=== PATIENT | male | born 1940 | race African-American/Black ===

== ENCOUNTER 2016-12-03 10:13 | Emergency (ER) | payer MEDICARE ==
[~2016-12-03] VITALS: Ht 185.4 cm; Wt 95.0 kg
[~2016-12-03 10:13] MED LIST: AMOXICILLIN500 MG PO; AUGMENTIN500TAB PO; AUGMENTIN875TAB PO; BENADRYL 50MG C50 MG PO; CENTRUM SILVER PO; CETIRIZ/PSE1 TAB PO; CIPROFLOXACIN250 MG PO; CIPROFLOXACN500 MG PO; FISH OIL1 CAP PO; FISH OIL1000 MG; FLEXERIL PO; FLOMAX0.4 M1 PO; FLONASE NASAL50 MCG; FLUARIX QUADRIV1 IN1 IM; GARLIC PO; GARLIC100 MG PO; GNP ALLERGY-D12 HOUR PO; LIORESAL10 MG/TA1 PO; METAMUCIL MULT58.6 % PO; MUCINEX1200 MG OR; MULTI VIT PO; NAPROSYN500 MG OR; NO HOME MEDS; NORCO1 TA2 PO; PEPCID20 MG PO; PERCOCET 5/325M1 TAB PO; PREDNISONE20 MG PO; PROAIR HFA IN; ROBITUSSIN AC10 ML PO; ULTRAM50 M1 PO; ULTRAM50 MG PO; ZITHROMAX250 MG PO; ZPAK PO; [UNRECOGNIZED DRUG - OTHER] PO
[2016-12-03 10:57] LABS: INFLUENZA A NONE DETECTED (NONE DETECT); INFLUENZA B NONE DETECTED (NONE DETECT)
[2016-12-03] MEDS ORDERED: KEFLEX500 M1 PO (11:48)
[2016-12-03] MEDS ORDERED: ROBITUSSIN AC10 ML PO (11:48)
[2016-12-03 11:53] VITALS: BP 139/74
== END 2016-12-03 11:53 | disposition home or self-care (01) ==
LOC: ED 10:13
PROVIDERS: Emergency Medicine
DX: J20.9 Acute bronchitis, unspecified (principal)

== ENCOUNTER 2017-07-22 15:02 | Observation (INO) | payer MEDICARE ==
[~2017-07-22] VITALS: Ht 185.4 cm; Wt 95.3 kg
[~2017-07-22 15:02] MED LIST changes: +KEFLEX500 M1 PO
[2017-07-22 15:21] LABS: HEMATOCRIT 41.2 % (39.0-50.0); HEMOGLOBIN 13.3 g/dl (14.0-18.0); IMMATURE GRANULOCYTES 0.2 % (0.0-1.0); MEAN CELL VOLUME 85.7 fL CALC (80.0-100.0); MEAN CORPUSCULAR HGB 27.7 pG CALC (26.0-32.0); MEAN CORPUSCULAR HGB CONC 32.3 g/L CALC (32.0-36.0); NEUT# 1.96 thou/uL (1.82-7.42); RED BLOOD COUNT 4.81 mill/uL (4.70-6.10); RED CELL DISTRI WIDTH 15.3 % (11.5-15.5)
--- NOTE | 2017-07-22 15:26 | NUR ---
PT REFUSED WC, AMBULATED TO ER ROOM 9 WITH STEADY GAIT, CHANGED INTO GOWN, ON MONITOR.
[2017-07-22 15:36] LABS: LIPASE 116 u/l (23-300)
[2017-07-22 15:37] LABS: ALBUMIN 4.3 g/dL (3.2-5.0); ALKALINE PHOSPHATASE 54 u/l (38-126); ANION GAP 15 (6-22 (CALC)); BILIRUBIN, TOTAL 0.6 mg/dL (0.0-1.4); BUN 10 mg/dL (8-23); BUN/CREATININE RATIO 9 (12-20 (CALC)); CALCIUM 9.4 mg/dL (8.4-10.2); CARBON DIOXIDE 26 mmol/l (22-30); CHLORIDE 109 mmol/l (95-108); GFR > 60 ML/MIN (>=60 (CALC)); GFR FOR AFR.AMER. > 60 ML/MIN (>=60 (CALC)); GLUCOSE 93 mg/dL (82-115); POTASSIUM 4.1 mmol/l (3.5-5.1); SGOT/AST 26 u/l (19-48); SGPT/ALT 23 u/l (11-66); SODIUM 146 mmol/l (137-146); TOTAL PROTEIN 7.4 g/dL (6.3-8.2)
[2017-07-22 15:48] LABS: MYOGLOBIN 31 ng/mL (0 - 121)
--- NOTE | 2017-07-22 16:00 | NUR ---
PATIENT REPORTING CONTINUED 8/10 RIGHT SIDED CP. PATIENT SHOWING SINUS RHYTHM ON THE MONITOR WITH NOTED PVC'S. MD NOTIFIED OF PT STATUS, AWAITING ORDERS.
--- NOTE | 2017-07-22 16:22 | NUR ---
PATIENT MEDICATED WITH 324 MG OF ASPIRIN AND 0.4 MG OF NITRO, SL FOR 8/10 ACHING CHEST PAIN. PATIENT ALSO MEDICATED WITH MAGIC MOUTH WASH. SINUS BRADYCARDIA NOTED ON THE MONITOR. WILL CONTINUE TO MONITOR. CALL VIERA WITHIN REACH.
--- NOTE | 2017-07-22 17:00 | NUR ---
PATIENT REPORTS CONTINUED 8/10 CHEST PAIN TO THE RIGHT ANTERIOR CHEST. MD NOTIFIED, AWAITING NEW ORDERS.
[2017-07-22 17:16] LABS: URINE BILIRUBIN - DIPSTICK NEGATIVE (NEGATIVE); URINE BLOOD DIPSTICK NEGATIVE (NEGATIVE); URINE CLARITY CLEAR; URINE COLOR YELLOW; URINE GLUCOSE - DIPSTICK NEGATIVE (NEGATIVE); URINE KETONE NEGATIVE (NEGATIVE); URINE LEUK ESTERASE NEGATIVE (NEGATIVE); URINE NITRITE - DIPSTICK NEGATIVE (Negative); URINE PROTEIN - DIPSTICK NEGATIVE (NEG-TRACE); URINE SPECIFIC GRAVITY 1.025; URINE UROBILINOGEN - DIPSTICK 0.2 E.U./dL (0.2)
[2017-07-22 17:19] LABS: BARBITURATES NEGATIVE (NEGATIVE); COCAINE NEGATIVE (NEGATIVE); METHADONE NEGATIVE (NEGATIVE); OXCYCODONE NEGATIVE (NEGATIVE); TETRAHYDROCANNABIONOL NEGATIVE (NEGATIVE); TRICYLIC ANTIDEPRESSANTS NEGATIVE (NEGATIVE)
--- NOTE | 2017-07-22 17:45 | NUR ---
REPORT GIVEN TO LIGIA MORTENSEN.
--- NOTE | 2017-07-22 18:13 | NUR ---
REPEAT EKG COMPLETED.
--- NOTE | 2017-07-22 18:20 | NUR ---
INFORMED PT OF ADMIT. INQUIRED ABOUT PT'S RIGHT EYE AND STATED PT SEES AN DOCTOR FOR GLUCOMA AND STATED PT HAD BUSTED BLOOD VESSEL IN THAT EYE BUT ALL PRESSURES ARE NORMAL. PT STILL COMPLAINING OF PAIN 03/23. DR SANCHEZ
--- NOTE | 2017-07-22 19:00 | NUR ---
REPORT GIVEN TO LIGIA BAE. WILL CALL WHEN PT MAY COME UP SHE IS GETTING REPORT ON FLOOR.
--- NOTE | 2017-07-22 19:30 | NUR ---
PT TRANSFERRED TO FLOOR VIA WC IN STABLE CONDITION ACCOMPANIED BY MIQUELRN;PT AMBULATED WITH A STEADY GAIT TO STANDING SCALE AND BEDSIDE;PT ORIENTED TO ROOM AND CALL LIGHT SYSTEM AND VERBALIZES UNDERSTANDING;VS OBTAINED;PT A&OX3,RESPIRATIONS EVEN AND UNLABORED ON RA;PT REPORTS CHEST PAIN X4 DAYS;NITRO PATCH NOTED TO RIGHT UPPER CHEST;PT VOICES NO COMPLAINTS OF PAIN AT THIS TIME AND IS EDUCATED ON PAIN SCALE AND REPORTING;TELE MONITOR NOTED;SKIN INTACT;RIGHT EYE APPEARS REDDENED PT STATES "I HAVE GLAUCOMA AND IM TAKING EYE DROPS FOR IT";SAFETY PRECAUTIONS REINFORCED WITH FALL PRECAUTIONS IN PLACE;URINAL AT BEDSIDE;PT EDUCATED TO CALL FOR ASSISTANCE IF NEEDED;CALL LIGHT IN REACH;WILL CONTINUE TO MONITOR
--- NOTE | 2017-07-22 19:34 | NUR ---
Admission Note Report Given to: VENU BAE Transported by: X Wheelchair Stretcher Transported with: X Nurse Transporter X Patent IV O2 X Food [employer] Drug Research Scientist
[2017-07-22 19:38] VITALS: BP 183/82
--- NOTE | 2017-07-22 19:43 | NUR ---
NOTIFIED THAT PT HAS ARRIVED TO FLOOR;NO NEW ORDERS RECEIVED
--- NOTE | 2017-07-22 19:50 | NUR ---
FRESH WATER AND SANDWICH PROVIDED TO PT
[2017-07-22 20:09] VITALS: BP 160/74
--- NOTE | 2017-07-22 21:30 | NUR ---
PT RESTING IN BED WATCHING TV;PT VOICES NO COMPLAINTS OF PAIN OR DISCOMFORTS;D5 1/2 NS STARTED TO RAC,PT TOLERATING WELL;URINAL EMPTIED OF 100CC OF DARK YELLOW/CLEAR URINE;PT EDUCATED TO CALL FOR ASSISTANCE;FALL PRECAUTIONS IN PLACE WITH CALL LIGHT IN REACH;WILL CONTINUE TO MONITOR
[2017-07-23] VITALS (7 sets, daily range): BP systolic 126–162; BP diastolic 41–77
--- NOTE | 2017-07-23 | NUR ---
PT APPEARS TO BE SLEEPING IN BED WITH EYES CLOSED;WOKE PT TO OBTAIN VS;IV FLUIDS INFUSING WELL TO RAC;PT VOICES NO COMPLAINTS OF PAIN OR DISCOMFORTS;RESPIRATIONS EVEN AND UNLABORED ON RA;TELE MONITOR IN PLACE;FALL PRECAUTIONS IN PLACE WITH CALL LIGHT IN REACH;WILL CONTINUE TO MONITOR
--- NOTE | 2017-07-23 04:40 | NUR ---
PT APPEARS TO BE SLEEPING IN SEMI FOWLERS POSITION WITH EYES CLOSED;WOKE PT TO OBTAIN VS;PT VOICES NO COMPLAINTS OF CHEST PAIN AT THIS TIME;PT DOES STATE THAT HE HAS A HEADACHE;EDUCATED PT ON SIDE EFFECTS OF NITRO OINTMENT AND OFFER TO REMOVE PATCH,PT REFUSES;IV FLUIDS INFUSING WELL TO RAC,SITE APPEARS HEALTHY;RESPIRATIONS EVEN AND UNLABORED ON RA;TELE MONITOR IN PLACE;PT DENIES ANY OTHER NEEDS AT THIS TIME;CALL LIGHT IN REACH;WILL CONTINUE TO MONITOR
[2017-07-23 05:29] LABS: HEMATOCRIT 37.6 % (39.0-50.0); HEMOGLOBIN 12.2 g/dl (14.0-18.0); IMMATURE GRANULOCYTES 0.2 % (0.0-1.0); MEAN CELL VOLUME 85.5 fL CALC (80.0-100.0); MEAN CORPUSCULAR HGB 27.7 pG CALC (26.0-32.0); MEAN CORPUSCULAR HGB CONC 32.4 g/L CALC (32.0-36.0); NEUT# 2.2 thou/uL (1.82-7.42); RED BLOOD COUNT 4.4 mill/uL (4.70-6.10)
[2017-07-23 05:38] LABS: ALBUMIN 3.4 g/dL (3.2-5.0); ALKALINE PHOSPHATASE 43 u/l (38-126); ANION GAP 14 (6-22 (CALC)); BILIRUBIN, TOTAL 0.7 mg/dL (0.0-1.4); BUN 12 mg/dL (8-23); BUN/CREATININE RATIO 12 (12-20 (CALC)); CALCIUM 8.7 mg/dL (8.4-10.2); CALCULATED LDLCHOLESTEROL 113 mg/dL (62-129 (CALC)); CARBON DIOXIDE 23 mmol/l (22-30); CHLORIDE 110 mmol/l (95-108); CHOLESTEROL HDL RATIO 4.9 (<4.4 (CALC)); GFR > 60 ML/MIN (>=60 (CALC)); GFR FOR AFR.AMER. > 60 ML/MIN (>=60 (CALC)); GLUCOSE 117 mg/dL (82-115); HDL CHOLESTEROL 34 mg/dL (>=40); POTASSIUM 4.3 mmol/l (3.5-5.1); SGOT/AST 23 u/l (19-48); SGPT/ALT 24 u/l (11-66); SODIUM 143 mmol/l (137-146); TOTAL CHOLESTEROL 167 mg/dl (0-199); TOTAL PROTEIN 6.2 g/dL (6.3-8.2); TOTAL TRIGLYCERIDES 99 mg/dl (30-149); VLDL CHOLESTROL 20 mg/dl (0-38 (CALC))
--- NOTE | 2017-07-23 07:24 | NUR ---
ASSESSMENT COMPLETED: IV SITE IS FREE FROM REDNESS OR EDEMA. NO DISTRESS NOTED. TELE MONITOR IN PLACE.
--- NOTE | 2017-07-23 12:45 | NUR ---
PT IS RELAXING IN BED FAMILY IN THE ROOM. IV SITE IS FREE FROM REDNESS OR EDEMA. NO DISTRESS NOTED. CONTINUE TO OBSERVE AND MONITOR.
--- NOTE | 2017-07-23 16:00 | NUR ---
PT IS VISITING WITH FAMILY. NO DISTRESS NOTED. IV SITE IS FREE FROM REDNESS OR EDEMA.
--- NOTE | 2017-07-23 19:45 | NUR ---
PT RESTING IN BED WATCHING TV;RESPIRATIONS EVEN AND UNLABORED ON RA;PT VOICES NO COMPLAINTS OF PAIN OR DISCOMFORTS;NITRO PATCH REMOVED FROM LEFT UPPER CHEST PER PT REQUEST;ASSESSMENT COMPLETED;LUNGS CLEAR;PERRLA;PT A&O X3;#20G TO RAC FLUSHED AND PATENT;TELE MONITOR IN PLACE;URINAL EMPTIED OF 800CC OF CLEAR/YELLOW URINE;SKIN INTACT;SAFETY PRECAUTIONS REINFORCED AND PT EDUCATED TO CALL FOR ASSISTANCE IF NEEDED;FALL PRECAUTIONS;CALL LIGHT IN REACH;WILL CONTINUE TO MONITOR
--- NOTE | 2017-07-23 22:45 | NUR ---
PT APPEARS TO BE SLEEPING WITH EYES CLOSED IN SEMI FOWLERS POSITION;WOKE PT TO OBTAIN VS;RESPIRATIONS EVEN AND UNLABORED ON RA;PT VOICES NO COMPLAINTS OF PAIN OR NEEDS AT THIS TIME;TELE MONITOR IN PLACE;CALL LIGHT IN REACH;WILL CONTINUE TO MONITOR
[2017-07-24 04:41] LABS: HEMATOCRIT 37.9 % (39.0-50.0); HEMOGLOBIN 12.4 g/dl (14.0-18.0); IMMATURE GRANULOCYTES 0.3 % (0.0-1.0); MEAN CELL VOLUME 85.2 fL CALC (80.0-100.0); MEAN CORPUSCULAR HGB 27.9 pG CALC (26.0-32.0); MEAN CORPUSCULAR HGB CONC 32.7 g/L CALC (32.0-36.0); NEUT# 3.19 thou/uL (1.82-7.42); RED BLOOD COUNT 4.45 mill/uL (4.70-6.10); RED CELL DISTRI WIDTH 14.9 % (11.5-15.5)
[2017-07-24 04:48] LABS: ALBUMIN 3.5 g/dL (3.2-5.0); ALKALINE PHOSPHATASE 46 u/l (38-126); ANION GAP 13 (6-22 (CALC)); BILIRUBIN, TOTAL 0.4 mg/dL (0.0-1.4); BUN 14 mg/dL (8-23); BUN/CREATININE RATIO 13 (12-20 (CALC)); CALCIUM 9.1 mg/dL (8.4-10.2); CARBON DIOXIDE 25 mmol/l (22-30); CHLORIDE 112 mmol/l (95-108); GFR > 60 ML/MIN (>=60 (CALC)); GFR FOR AFR.AMER. > 60 ML/MIN (>=60 (CALC)); GLUCOSE 121 mg/dL (82-115); POTASSIUM 4.4 mmol/l (3.5-5.1); SGOT/AST 24 u/l (19-48); SGPT/ALT 31 u/l (11-66); SODIUM 144 mmol/l (137-146); TOTAL PROTEIN 6.3 g/dL (6.3-8.2)
[2017-07-24 04:55] VITALS: BP 152/82
--- NOTE | 2017-07-24 05:00 | NUR ---
PT RESTING IN BED WATCHING TV;PT VOICES NO COMPLAINTS OF CHEST PAIN JUST REPORTS FEELING "SLUGGISH";RESPIRATIONS EVEN AND UNLABORED ON RA;TELE MONITOR IN PLACE;PT DENIES ANY NEEDS AT THIS TIME;FALL PRECAUTIONS IN PLACE WITH CALL LIGHT IN REACH;WILL CONTINUE TO MONITOR
[2017-07-24 07:00] VITALS: BP 168/84
--- NOTE | 2017-07-24 07:33 | NUR ---
PT.C/O CHEST PAIN 8/10 ON RIGHT SIDE OF CHEST RADIATING OVER TO LEFT SIDE AND DOWN RIGHT FLANK. V/S ASSESSED B/P 170/78 HR 72 , EKG ORDERED SHOWING PELON/OTHERWISE NORMAL, B/P REASSESSED MANUAL @ 168/84 HR44. PT.MEDICATED WITH LISINIPRIL, XANAX AND MORNING MEDICATIONS ORDERED, WAS NOTIFIED AND D-DIMER, TROPONIN ORDERED, ABG'S, CTA OF CHEST AND ROENY COCKTAIL ORDERED.
--- NOTE | 2017-07-24 08:30 | NUR ---
PT. ASSESSMENT COMPLETED. PT. IS ALERT/ORIENTED X3. REPORTS PAIN 6/10 STATING IT BEGINS IN THE RIGHT SIDE OF CHEST, RADIATING DOWN TO RIGHT HIP, AND ACROSS ABDOMEN TO LEFT SIDE. PAIN DESCRIBED SHARP AND THROBBING. LIGIA DRUMMOND MADE AWARE. PUPILS REACTIVE SIZE 2, HX OF CATARACT SURGERY. RESPIRATIONS EVEN/UNLABORED. FACE SYMMETRICAL. EXHIBITS NO WEAKNESS IN EXTREMITIES. LUNGS ARE CLEAR. SKIN INTACT, WARM, AND ACYANOTIC. CAPILLARY REFILL <3 SECONDS. NO SIGNS OF EDEMA. HEART RHYTHM IRREGULAR, SOUNDS ARE NORMAL. APICAL HR 47 BPM. PT AMBULATES SELF TO BATHROOM WITHOUT ASSISTANCE, ENCOURAGED PT TO SIT ON SIDE OF BED FOR A FEW MINUTES BEFORE GETTING UP, PT. EXPRESSED UNDERSTANDING OF INSTRUCTION. PT.EXPRESSES NO NEEDS AT THIS TIME. CALL LIGHT WITHIN REACH, BED RAILS UP, WHEELS LOCKED. WILL CONTINUE TO MONITOR.
[2017-07-24 09:31] LABS: TSH, 3RD GENERATION 1.09 uIU/mL (0.47 - 4.68)
[2017-07-24 11:20] VITALS: BP 134/66
--- NOTE | 2017-07-24 12:00 | NUR ---
PT.OFF THE UNIT FOR NUCLEAR TEST.
--- NOTE | 2017-07-24 14:55 | NUR ---
SPOKE TO PATIENT DURING DAILY PATIENT ROUNDS. DISCUSSED INDICATIONS FOR NEW MEDICATIONS (LISINOPRIL,TEMAZEPAM,XANAX) AND THEIR SIDE-EFFECTS. PATIENT WAS IN DENIAL ABOUT HIS MEDICAL CONDITIONS. SPENT TIME TALKING ABOUT THE SYMPTOMS OF ANXIETY AND HOW XANAX CAN HELP WITH SYMPTOMS.
[2017-07-24 15:26] VITALS: BP 161/83
--- NOTE | 2017-07-24 16:56 | NUR ---
NOTIFIED THAT VQ SCAN RESULTS ARE IN, HE IS GOING TO COME SEE THE PT.THIS AFTERNOON AND POSSIBLE DISCHARGE.
[2017-07-24] MEDS ORDERED: ALPRAZOLAM0.5 MG PO (17:41)
== END 2017-07-24 18:49 | disposition home or self-care (01) ==
LOC: ED 15:02 → ED-I 18:03 → ED 18:20 → MS2 18:21
PROVIDERS: Emergency Medicine; ADMIT Internal Medicine Geriatric Medicine; ATTEND Internal Medicine Geriatric Medicine
PROC: 3E0234Z Introduction of Serum, Toxoid and Vaccine into Muscle, Percutaneous Approach (ICD-10-PCS; principal; 2017-07-23)
DX: R00.1 Bradycardia, unspecified (principal); R07.89 Other chest pain; N40.0 Benign prostatic hyperplasia without lower urinary tract symptoms; I44.0 Atrioventricular block, first degree; K21.9 Gastro-esophageal reflux disease without esophagitis; Z23 Encounter for immunization; R06.02 Shortness of breath
CPT/HCPCS: A9540; A9567

== ENCOUNTER 2017-09-24 06:31 | Emergency (ER) | payer MEDICARE ==
[~2017-09-24] VITALS: Ht 185.4 cm; Wt 94.5 kg
[~2017-09-24 06:31] MED LIST changes: +ALPRAZOLAM0.5 MG PO
[2017-09-24] MEDS ORDERED: LATANOPROST0.005 % OU (07:06)
[2017-09-24] MEDS ORDERED: [UNRECOGNIZED DRUG - OTHER] (07:06)
[2017-09-24 07:50] LABS: INFLUENZA A NONE DETECTED (NONE DETECT); INFLUENZA B NONE DETECTED (NONE DETECT)
[2017-09-24] MEDS ORDERED: ZPAK PO (08:07)
[2017-09-24] MEDS ORDERED: TAM75CAP PO (08:07)
[2017-09-24] MEDS ORDERED: PROAIR HFA108 MCG/AC PO (08:09)
[2017-09-24 08:30] VITALS: BP 143/82
== END 2017-09-24 08:30 | disposition home or self-care (01) ==
LOC: ED 06:31
PROVIDERS: Family Medicine
DX: J06.9 Acute upper respiratory infection, unspecified (principal); I51.9 Heart disease, unspecified; N40.0 Benign prostatic hyperplasia without lower urinary tract symptoms; E07.9 Disorder of thyroid, unspecified

== ENCOUNTER 2018-07-23 10:57 | Emergency (ER) | payer MEDICARE ==
[~2018-07-23] VITALS: Ht 185.4 cm; Wt 99.4 kg
[~2018-07-23 10:57] MED LIST changes: +LATANOPROST0.005 % OU; +PROAIR HFA108 MCG/AC PO; +TAM75CAP PO; +[UNRECOGNIZED DRUG - OTHER]
[2018-07-23] MEDS ORDERED: AMOXICILLIN875 MG PO (12:11)
[2018-07-23] MEDS ORDERED: TESSALON PER100 MG PO (12:11)
[2018-07-23 12:20] VITALS: BP 141/86
== END 2018-07-23 12:20 | disposition home or self-care (01) ==
LOC: ED 10:57
DX: J02.0 Streptococcal pharyngitis (principal)

== ENCOUNTER → 2018-10-08 | Outpatient (REF) ==
[~2018-10-08] MED LIST changes: +AMOXICILLIN875 MG PO; +TESSALON PER100 MG PO
== END | disposition home or self-care (01) | DRG 607 ==
LOC: LAB 10:22
PROVIDERS: ATTEND Nurse Practitioner Family
DX: D04.9 Carcinoma in situ of skin, unspecified (principal)